=== PATIENT | female | born 1965 | race Caucasian/White ===

== ENCOUNTER 2018-07-13 08:13 | Day surgery (SDC) | payer BC ==
[~2018-07-13] VITALS: Ht 170.2 cm; Wt 81.7 kg
--- NOTE | 2018-07-13 10:34 | NUR ---
07/13/18 Juan4 Carol Renteria 1029-PATIENT ARRIVED TO PACU ON 3L NC. PATIENT REACTIVE TO VOICE EYES CLOSED. DENIES PAIN. LAYING LEFT LATERAL ABDOMEN SOFT.
--- NOTE | 2018-07-14 09:18 | OR ---
[facility] [address], [place] [address] Signed DATE OF OPERATION: 07/13/2018 SURGEON: Samuel Duarte MD PREOPERATIVE DIAGNOSIS: Screening. POSTOPERATIVE DIAGNOSIS: Minimal sigmoid diverticulosis. PROCEDURE: Colonoscopy without biopsy. ESTIMATED BLOOD LOSS: None. INDICATIONS: Noris is a 53-year-old female who was asked to see me for her initial screening colonoscopy. She has no lower GI complaints. There is no family history of colon cancer or polyps. In the office, I gave her a pamphlet on colonoscopy. She understands the nature of the test along with the risks including, but not limited to gas, bloating, crampy abdominal pain, bleeding, perforation, requiring surgery, and missed diagnosis. She also understands the need for IV conscious sedation. She had expressed understanding and wished to proceed. PROCEDURE NOTE: Noris was taken into our endoscopy suite and placed in the left lateral decubitus position. She was given IV sedation with 7 mg of Versed and 150 mcg of fentanyl. A digital rectal exam was performed and this was unremarkable. The adult colonoscope was introduced and advanced under direct visualization of camera. Noris is slight of build and her sigmoid colon and left colon were somewhat long and a little bit narrow and angulated. It took a few minutes to get through here through this area along with some additional sedation and abdominal compression. The scope then passed quite readily into the cecum itself. Her prep was quite good. We could easily see the appendiceal orifice and the ileocecal valve. The scope was then slowly withdrawn. We took pictures throughout for photodocumentation. She had just a few diverticula in her sigmoid colon. Otherwise no findings. The rectum was unremarkable. Upon retroflexion of the scope, she has no evidence of any pathology associated with the anal canal. After this, the gas was suctioned out and the colonoscope removed. Noris tolerated the procedure quite well. Electronically Signed By: SAMUEL DUARTE MD 07/14/18 0918 PATIENT NAME: NORIS OLSEN OPERATIVE REPORT DATE OF : 69 REPORT #: [id number] PHYSICIAN: SAMUEL DUARTE MD PCP: NO PRIMARY CARE PHYSICIAN REPORT IS CONFIDENTIAL AND NOT TO BE RELEASED WITHOUT AUTHORIZATION [address] [address] Signed RECOMMENDATIONS: Noris can follow up in 10 years for repeat colonoscopy. Samuel Duarte MD ALB/MODL /[id number] cc: MD Samuel Negron MD Copies: TERRY ADAMS MD, ANDREW L MD ~ Electronically Signed By: SAMUEL DUARTE MD 07/14/18917 PATIENT NAME: NORIS OLSEN OPERATIVE REPORT DATE OF : 69 REPORT #: [id number] PHYSICIAN: SAMUEL DUARTE MD PCP: NO PRIMARY CARE PHYSICIAN REPORT IS CONFIDENTIAL AND NOT TO BE RELEASED WITHOUT AUTHORIZATION
== END 2018-07-13 11:15 | disposition home or self-care (01) ==
LOC: OPS 08:13 → DS 08:13 → OPS 09:45
PROVIDERS: Colon & Rectal Surgery
PROC: 0DJD8ZZ Inspection of Lower Intestinal Tract, Via Natural or Artificial Opening Endoscopic (ICD-10-PCS; principal; 2018-07-13 09:45)
DX: Z12.11 Encounter for screening for malignant neoplasm of colon (principal); K57.30 Diverticulosis of large intestine without perforation or abscess without bleeding
CPT/HCPCS: 99153; G0500; J2250; J3010